=== PATIENT | male | born 1985 | race Caucasian/White ===

== ENCOUNTER 2017-12-01 12:25 | Observation (INO) ==
[2017-12-01] MEDS ORDERED: LORazepam 2 MG/1 ML VIAL ONE (12:30)
[2017-12-01] MEDS ORDERED: Sodium Chloride 0.9% 1,000 ML PRIMARY IV ONE (12:37)
[2017-12-01 12:43] LABS: BASOPHILS # (AUTO) 0.06 10*3/UL; BASOPHILS % (AUTO) 0.5 % (0-1); EOSINOPHILS # (AUTO) 0.22 10*3/UL; Hematocrit [HCT] 47.1 % (42.0-52.0); Hemoglobin [HGB] 15.7 g/dL (14.0-18.0); LYMPHOCYTES # (AUTO) 6.37 10*3/uL; MEAN CORPUSCULAR HGB CONC 33.3 g/dL (33-37); MEAN CORPUSCULAR VOLUME 86.9 FL (80-90); MEAN PLATELET VOLUME 10.2 FL (7.4-12.2); MONOCYTES # (AUTO) 0.81 10*3/UL (0.3-0.8); MONOCYTES % (AUTO) 7.3 % (5-15); NEUTROPHILS # (AUTO) 3.52 10*3/UL; NEUTROPHILS % (AUTO) 31.8 % (50-80); RED BLOOD COUNT 5.42 10^6/uL (4.70-6.10)
[2017-12-01 12:53] LABS: BLOOD UREA NITROGEN 12 mg/dL (7-22); SERUM ALBUMIN 5.6 g/dL (3.5-4.8)
[2017-12-01 12:56] LABS: PLATELET MORPHOLOGY COMMENT NORMAL MORPHOLOGY (NORM); RBC MORPHOLOGY COMMENT NORMAL MORPHOLOGY (NORM); WBC MORPHOLOGY COMMENT NORMAL MORPHOLOGY (NORM)
[2017-12-01] MEDS ORDERED: LORazepam 2 MG/1 ML VIAL IVP ONE (13:10)
[2017-12-01] MEDS ORDERED: DEXTROSE 50%-WATER SYRINGE 50 ML SYRINGE IVP ONE (13:11)
[2017-12-01 13:42] LABS: BILIRUBIN,URINE NEGATIVE (NEG); CLARITY,URINE CLEAR (CLEAR); COLOR,URINE YELLOW (Y); GLUCOSE, URINE (UA) 100 mg/dL (NEG); OCCULT BLOOD,URINE NEGATIVE (NEG); PH,URINE 5.5 (5.0-8.5); PROTEIN,URINE NEGATIVE (NEG); UROBILINOGEN,URINE 0.2 EU/dL (0.2)
--- NOTE | 2017-12-01 13:42 | DI ---
XR CXR 1VW 12/01/2017 12:37 PM HISTORY: altered mental status, brief CPR Comparison: None. Findings: A single portable frontal view of the chest is submitted. Images demonstrate normal aeration without focal consolidation. There is no large pneumothorax or ple ural effusion. The cardiomediastinal silhouette is within normal limits for technique. The osseous st ructures are grossly unremarkable. Impression: No radiographic evidence of acute cardiopulmonary disease.
[2017-12-01 13:43] LABS: URINE SAMPLE TYPE CLEAN CATCH URINE
--- NOTE | 2017-12-01 13:44 | DI ---
CT Head WO Contrast 12/01/2017 12:37 PM History: altered mental status Comparison: None. Procedure: Noncontrast axial, sagittal, and coronal CT images through the head were obtained. Findings: There is no intracranial hemorrhage or extra-axial fluid collection. The ventricles are nor mal in size and configuration. There is normal hugo-white differentiation without focal mass or mass- effect. The visualized portions of the paranasal sinuses are clear. Orbits and facial soft tissues a re unremarkable. Review of the osseous structures shows no depressed calvarial fracture or aggressiv e osseous lesion. The mastoid air cells are clear. Impression: No acute intracranial findings.
[2017-12-01 13:54] LABS: AMPHETAMINE SCREEN NEGATIVE (NEG); CANNABINOID SCREEN,URINE NEGATIVE (NEG); COCAINE SCREEN NEGATIVE (NEG); METHADONE URINE SCREEN NEGATIVE (NEG); METHAMPHETAMINES SCREEN,URINE NEGATIVE (NEG); OPIATE SCREEN,URINE NEGATIVE (NEG)
--- NOTE | 2017-12-01 15:46 | PDOC ---
HPI - History of Present Illness Date of Service: 12/01/17 Time of Service: 16:10 Chief Complaint: Passed out History of Present Illness: This is a 31 years old male with medical history significant for diabetes type I on insulin, he had it since age 15, hypertension, hypercholesterolemia and diabetic neuropathy who was brought to the hospital because he passed out at work. There is also based on the ER reports he had some seizure. Apparently the medics thought that he had no pulse and they started CPR but he woke up quickly and brought to the ER. His blood sugar was low less than 25 he was given dextrose . He Started to become more awake and was given foods and was admitted. He Was complaining from pain in his chest where they did the CPR and also pain in his legs. He said his blood sugar is fluctuating between highs and lows. He cannot afford newer kind of insulin he is on NPH 20 units twice a day. he Is also on Humalog. He said he would give himself Humalog every morning around 10 AM. But the rest depends on his intake and blood sugar number. Past Medical History Medical History: 1. Diabetes type I on insulin and metformin. 2. Hypertension. 3. Hypercholesterolemia. 4. Diabetic neuropathy Surgical History: Thrombosed hemorrhoid surgery Family History: Reviewed an Not Pertinent Past Social History: He works at [employer] from 6 AM to around 2 PM said. Twice a week he has another job after his day job. He doesn't smoke, no drugs. He drinks he said twice a week but his mother said he drinks more than that. Tobacco Use: Never Smoker In the Past 12 Months, Have Used or Abuse Any of the Following Substance: None Alcohol Use: Other (According to him he drinks wine maybe twice a week. However his mom told me after I left the room that he drinks heavily and nearly every day) Medication / Allergies Home Medications: Home Medications 3 Medication Instructions Recorded Confirmed Type acetaminophen 325 mg tablet 650 mg PO Q6H PRN 11/06/17 12/01/17 History gabapentin 600 mg tablet 600 mg PO BID 11/06/17 12/01/17 History insulin NPH isophane U-100 human 20 unit SUBCUT BID ml 11/06/17 12/01/17 History 100 unit/mL subcutaneous suspension insulin lispro (U-100) 100 unit/mL 12 unit SUBCUT QAC ml 11/06/17 12/01/17 History subcutaneous solution lisinopril 10 mg tablet 10 mg PO QDAY 11/06/17 12/01/17 History metformin 500 mg tablet 500 mg PO BID 11/06/17 12/01/17 History naproxen sodium 220 mg tablet 220 mg PO BID PRN 11/06/17 12/01/17 History simvastatin 40 mg tablet 40 mg PO QHS 11/06/17 12/01/17 History Allergies/Adverse Reactions: Allergies 3 Allergy/AdvReac Type Severity Reaction Status Date / Time tb serum Allergy Intermediate arm Uncoded 12/01/17 15:20 swelling Review of Systems - Review of Systems All Systems: Reviewed & No Additional Complaints Except as Stated Exam - Vitals Vital Signs: Vital Signs Pulse Rate 110 Respiratory Rate 18 Oxygen Delivery Method Room Air Height 5 ft 8 in Weight 185 lb 6 oz - General General Appearance: Cooperative Additional General Exam Details: Looks tired - Head Head Exam: Normal Inspection - Eye Eye Exam: POSITIVE: Normal Appearance - ENT ENT Exam: POSITIVE: Normal Exam - Neck Neck Exam: Normal Inspection - Respiratory Respiratory Exam: POSITIVE: Clear to Auscultation - Bilaterally - Cardiovascular Cardiovascular Exam: POSITIVE: Tachycardia - GI/Abdominal GI/Abdominal Exam: POSITIVE: Normal Bowel Sounds, Non Tender, Non Distended, Soft, No Organomegaly - Rectal Rectal Exam: POSITIVE: Deferred - External Exam: POSITIVE: Deferred - Extremities Extremities Exam: POSITIVE: Normal Inspection - Back Back Exam: POSITIVE: Normal Inspection - Neurological Neurological Exam: POSITIVE: Alert, Oriented x 3, Normal Gait, CN II-XII Intact , Speech Intact / Clear, Moves All Extremities Equally - Psychiatric Psychiatric Exam: POSITIVE: Normal Affect - Integumentary Integumentary Exam: POSITIVE: Normal Color Results - Labs CBC and BMP: 12/01/17 12:42 12/02/17 07:55 - Imaging Status: Report Reviewed by Me (CT head Impression: No acute intracranial findings. Chest X ray Impression: No radiographic evidence of acute cardiopulmonary disease.) Assessment and Plan - Patient Problems (1) Hypoglycemia Current Visit: Yes Status: Acute Comment: Based on what he said he has fluctuating blood sugar between high and low. I suspect his intake is playing part in it. His mother said after I left the room that he drinks a lot and skips meal. I did talk to the clinical trial educator to talk to him. Meanwhile I think will watch his blood sugar will put on some IV fluid. Will continue with NPH because this is what he can afford. Will write for sliding scale also. Will see whether we can give him samples of the newer Insulin on discharge Code(s): E16.2 - Hypoglycemia, unspecified (2) Diabetes Current Visit: No Status: Chronic Comment: Continue NPH and write for sliding scale. We'll put him on IV fluid. Code(s): E11.9 - Type 2 diabetes mellitus without complications Qualifiers: Diabetes mellitus type: type 1 Diabetes mellitus complication status: with neurologic complications Diabetes mellitus complication detail: with polyneuropathy Qualified Code(s): E10.42 - Type 1 diabetes mellitus with diabetic polyneuropathy (3) Hypertension Current Visit: Yes Status: Acute Comment: We'll see what his blood pressure tomorrow and then will decide about restarting lisinopril Code(s): I10 - Essential (primary) hypertension (4) High anion gap metabolic acidosis Current Visit: Yes Status: Acute Comment: Probably secondary to the seizure will put on some IV fluid Code(s): E87.2 - Acidosis (5) Diabetic neuropathy Current Visit: Yes Status: Acute Comment: Continue gabapentin Code(s): E11.40 - Type 2 diabetes mellitus with diabetic neuropathy, unspecified (6) Depression Current Visit: Yes Status: Acute Comment: His depression screening was up, will consult [facility]. I did talk to him again and he said he is under stress but he is denying suicidal ideation. I did talk to him about the fact that he signed a DO NOT RESUSCITATE paper to try to convince him to change his mind he refused. He said this is based on his pedro pablo. He said he refuses blood transfusion and any blood products. And he refuses resuscitation. He said his has a paper that he signed before in 2009 that indicate the same. At the time of my assessment he was competent of making such decisions. Code(s): F32.9 - Major depressive disorder, single episode, unspecified
[2017-12-01] MEDS ORDERED: LIDOCAINE W/ SODIUM BICARB 0.5 ML SYR SUBD PRN (15:51)
[2017-12-01] MEDS ORDERED: CALCIUM CARBONATE 500 MG (TUMS) CHEWABLE TABLET PO PRN (15:51)
[2017-12-01] MEDS ORDERED: ACETAMINOPHEN 325 MG TABLET PO PRN (15:51)
[2017-12-01] MEDS ORDERED: ONDANSETRON 4 MG/2 ML VIAL IVP PRN (15:51)
[2017-12-01] MEDS ORDERED: PNEUMOCOCCAL 23 VACCINE 25 MCG/0.5 ML VIAL IM ONE (15:53)
[2017-12-01] MEDS ORDERED: Influenza 18-19 Vaccine (6mo+) 60 MCG/0.5 ML SYRINGE IM ONE (15:53)
[2017-12-01] MEDS: Sodium Chloride 0.9% 1,000 ML PRIMARY IV SCH ×2 (16:36→22:37)
[2017-12-01] MEDS ORDERED: POTASSIUM CHLORIDE 20 MEQ TAB PO ONE (16:40)
[2017-12-01] MEDS: KETOROLAC 15 MG/1 ML VIAL IVP PRN (16:54)
[2017-12-01] MEDS: Insulin Lispro Flexpen 300 UNIT/3 ML INSULN.PEN SUBCUT SCH (18:02)
--- NOTE | 2017-12-01 18:09 | EKG ---
[address] [address] Measurements Intervals [place] Rate: 107 P: 69 [place]: 136 QRS: 83 QRSD: 86 T: -11 QT: 343 QTc: 406 Interpretive Statements SINUS TACHYCARDIA NONSPECIFIC T-WAVE ABNORMALITY Compared to ECG 10/30/2017 10:33:17 Sinus rhythm no longer present T-wave abnormality still present Electronically Signed On 12-02-17 08:26:27 MDT by Franco Oquendo MD [email or web address]
[2017-12-01] MEDS: HYDROcodone-APAP 5 MG -325 MG TABLET PO PRN (19:43)
[2017-12-01] MEDS: GABAPENTIN 300 MG CAPSULE PO SCH (20:27)
[2017-12-01 20:33] LABS: BLOOD UREA NITROGEN 15 mg/dL (7-22); BUN/CREATININE RATIO 18.75 (6-20)
[2017-12-01] MEDS ORDERED: Insulin NPH Kwikpen Inj 100 UNIT/ML INSULN.PEN SUBCUT ONE (22:29)
[2017-12-01] MEDS: Insulin NPH Kwikpen Inj 100 UNIT/ML INSULN.PEN SUBCUT SCH (22:31)
--- NOTE | 2017-12-01 23:24 | PDOC ---
General Adult HPI - General Chief Complaint: Altered Mental Status Stated Complaint: Unresponsive Date Seen by Provider: 12/01/17 Time Seen by Provider: 12:30 Source: POSITIVE: Patient, EMS Exam Limitations: POSITIVE: Clinical condition Nurse's Notes Reviewed & Considered: Yes EMS Report Reviewed & Considered: Verbal - History of Present Illness Initial Comment: The patient is a 31-year-old male who is brought to the emergency department by ambulance emergently after the patient was experiencing what appeared to be seizure activity and became unresponsive. The patient works at [employer]. Coworker stated that he became very confused and appeared to be having seizure- like activity. EMS was called. When EMS arrived on scene the patient appeared to be post ictal and somewhat confused. They were able to help him ambulate to the cot initially and he was placed in the back of the ambulance. Just as he got into the back of the ambulance the patient became very diaphoretic and unresponsive. He appeared cyanotic and did not appear to be breathing. When EMS personnel checked for a pulse they did not feel a pulse and CPR was started. After a brief episode of chest compressions the patient started moaning and appeared to be breathing on his own so CPR was discontinued. He was connected to the monitor and EMS personnel initially thought the patient might be in atrial flutter however on review of the rhythm strips it appears to be more sinus tachycardia with a rate of around 140 with artifact. The patient was subsequently transported emergently here to the emergency department. On arrival the patient will open his eyes however will not answer questions or follow commands. Have you received a tetanus shot in the past 10 years?: Unknown - Patient Home Medications Home Medications: Home Medications acetaminophen 325 mg tablet 650 mg PO Q6H PRN 11/06/17 gabapentin 600 mg tablet 600 mg PO BID 11/06/17 insulin NPH isophane U-100 human 100 unit/mL subcutaneous suspension 20 unit SUBCUT BID ml 11/06/17 insulin lispro (U-100) 100 unit/mL subcutaneous solution 12 unit SUBCUT QAC ml 11/06/17 lisinopril 10 mg tablet 10 mg PO QDAY 11/06/17 metformin 500 mg tablet 500 mg PO BID 11/06/17 naproxen sodium 220 mg tablet 220 mg PO BID PRN 11/06/17 simvastatin 40 mg tablet 40 mg PO QHS 11/06/17 - Patient Allergies Allergies/Adverse Reactions: Allergies 3 Allergy/AdvReac Type Severity Reaction Status Date / Time tb serum Allergy Intermediate arm Uncoded 12/01/17 15:20 swelling Past Medical History - heen HEENT History: Denies History Cardiovascular History: Hypertension, Hyperlipidemia Respiratory History: Denies History Gastrointestinal History: Denies History Genitourinary History: Denies History Endocrine History: Type 1 Diabetes Musculoskeletal History: Denies History Prosthesis or Implant: No Neurological History: Denies History Blood Disorders: Denies History Psychiatric History: Denies History History of Sexually Transmitted Diseases: No Cancer History: Denies History In Past Year Been Physically Harmed or Verbally Threatened: No History of MDRO: No History of Other Communicable Diseases: No Tobacco Use: Never Smoker Type of alcohol normally used: Beer, Wine In the Past 12 Months, Have Used or Abuse Any Substance: None Previous Surgical History: No Significant Family History: Cancer Past Medical History Reviewed: Reviewed - No Changes ROS - Limitations ROS Limitations: Clinical Condition General Adult Exam - General Appearance General Appearance: POSITIVE: Other (On arrival the patient would open his eyes however he would not verbally respond or follow commands) - HEENT HEENT: POSITIVE: Head Inspection Nml (No visible signs of trauma), Eyes Inspection Nml, Ears Inspection Nml, Nose Inspection Nml, Oral/Dental Inspect. Nml, Pharynx Inspect. Nml, PERRL, EOMI - Neck Neck: POSITIVE: Normal Inspection. NEGATIVE: Lymphadenopathy - Respiratory Respiratory: POSITIVE: No Respiratory Distress, Other (The patient is breathing on his own, he does have some coarse rhonchi, his oxygen saturations were in the upper 80s and he was placed on O2 per high flow mask) - Cardiovascular Cardiovascular: POSITIVE: Regular Rate & Rhythm, No Murmur Peripheral Pulses: Dorsalis-pedis (R): 2+, Dorsalis-pedis (L): 2+ - Abdomen Abdomen: Soft: (All Quadrants), Denies Tenderness: (All Quadrants), No Distention: (All Quadrants) - Back Back: POSITIVE: Normal Inspection - Skin Skin: POSITIVE: Normal Color, No Rash - Extremities Extremity: Normal ROM: (All Extremities), Normal Inspection: (All Extremities) General Adult Progress - Results Reviewed by me Xrays/CTs/US Reviewed by me: Yes Discussed with Radiologist: Yes Radiology Findings: CT scan of the head reveals no acute intracranial findings per radiologist, chest x-ray is unremarkable per radiologist. Lab Results Reviewed by Me: Yes Lab Results:: Laboratory Results 3 12/01/17 12/01/17 12/01/17 12:42 12:42 12:42 WBC 11.08 H RBC 5.42 Hgb 15.7 Hct 47.1 MCV 86.9 MCH 29.0 MCHC 33.3 RDW Std Deviation 44.2 RDW Coeff of [place]ako 13.8 Plt Count 261 MPV 10.2 Immature Gran % (Auto) 0.9 Neut % (Auto) 31.8 L Lymph % (Auto) 57.5 H [place] % (Auto) 7.3 Eos % (Auto) 2.0 Baso % (Auto) 0.5 Immature Gran # (Auto) 0.10 Neut # (Auto) 3.52 Lymph # (Auto) 6.37 [place] # (Auto) 0.81 H Eos # (Auto) 0.22 Baso # (Auto) 0.06 WBC Morphology Comment Normal morphology Plt Morphology Comment Normal morphology RBC Morph Comment Normal morphology Sodium 149 H Potassium 3.4 L Chloride 111 Carbon Dioxide 12 L Anion Gap 26 H BUN 12 Creatinine 1.2 Estimated GFR > 60 BUN/Creatinine Ratio 10.00 Glucose 46 L* Calculated Osmolality 304.0 H Calcium 9.8 Magnesium 2.1 Total Bilirubin 0.3 AST 74 H ALT 47 Alkaline Phosphatase 68 Troponin I < 0.012 C-Reactive Protein < 0.5 NT-Pro-B Natriuret Pep 76.9 Total Protein 8.7 H Albumin 5.6 H Globulin 3.1 Albumin/Globulin Ratio 1.80 TSH Ur Collection Type Urine Color Urine Clarity Urine pH Ur Specific [place] U Specif Grav (Refrac) Urine Protein Urine Glucose (UA) Urine Ketones Urine Occult Blood Urine Nitrate Urine Bilirubin Urine Urobilinogen Ur Leukocyte Esterase Ur Culture Indicated? Urine Opiates Screen Ur Buprenorphine Ur Oxycodone Screen Urine Methadone Screen Ur Propoxyphene Screen Barbiturate Screen U Tricyclic Antidepress Phencyclidine Screen Amphetamines Screen U Methamphetamines Scrn Benzodiazepines Screen Cocaine Screen U Marijuana (THC) Screen Serum Alcohol < 10 3 12/01/17 12/01/17 12:42 13:37 WBC RBC Hgb Hct MCV MCH MCHC RDW Std Deviation RDW Coeff of [place] Plt Count MPV Immature Gran % (Auto) Neut % (Auto) Lymph % (Auto) [place] % (Auto) Eos % (Auto) Baso % (Auto) Immature Gran # (Auto) Neut # (Auto) Lymph # (Auto) [place] # (Auto) Eos # (Auto) Baso # (Auto) WBC Morphology Comment Plt Morphology Comment RBC Morph Comment Sodium Potassium Chloride Carbon Dioxide Anion Gap BUN Creatinine Estimated GFR BUN/Creatinine Ratio Glucose Calculated Osmolality Calcium Magnesium Total Bilirubin AST ALT Alkaline Phosphatase Troponin I C-Reactive Protein NT-Pro-B Natriuret Pep Total Protein Albumin Globulin Albumin/Globulin Ratio TSH 1.90 Ur Collection Type Clean catch urine Urine Color Yellow Urine Clarity Clear Urine pH 5.5 Ur Specific [place] 1.020 U Specif Grav (Refrac) 1.020 Urine Protein Negative Urine Glucose (UA) 100 Urine Ketones Negative Urine Occult Blood Negative Urine Nitrate Negative Urine Bilirubin Negative Urine Urobilinogen 0.2 Ur Leukocyte Esterase Negative Ur Culture Indicated? Culture not set Urine Opiates Screen Negative Ur Buprenorphine Negative Ur Oxycodone Screen Negative Urine Methadone Screen Negative Ur Propoxyphene Screen Negative Barbiturate Screen Negative U Tricyclic Antidepress Negative Phencyclidine Screen Negative Amphetamines Screen Negative U Methamphetamines Scrn Negative Benzodiazepines Screen Negative Cocaine Screen Negative U Marijuana (THC) Screen Negative Serum Alcohol CBC and BMP: 12/01/17 12:42 12/01/17 20:21 EKG Interpreted/Reviewed By Me:: Yes EKG Interpretation:: POSITIVE: Normal Sinus Rhythm, Normal Rate, Normal QRS, Normal ST/T, Other (EKG was done after the patient had been admitted) - Patient's Progress MDM / ED Course: On arrival the patient was minimally responsive and would only open his eyes. He would not respond verbally and would not follow commands. His oxygen saturations were in the upper 80s on room air and he was placed on O2 per high flow mask. IV was established. Blood sugar was checked and was found to be less than 25. He subsequently received 1 amp of D50. His mental status improved significantly and his blood sugar initially came up into the 120s. His blood sugar then started drifting down into the upper 40s and he was able to eat oral glucose tablets, juice and some food. His blood sugar came back up into the 80s. After administration of glucose the patient was complaining primarily of some soreness in his chest and a little bit in his jaw. He was answering questions appropriately and had no focal neurologic deficits. The patient does have a history of diabetes and does use insulin. His blood sugars have been erratic. He does not have any known history of seizure disorder. CT scan of his head was unremarkable and chest x-ray was normal. Other than the low blood sugar his blood work is essentially unremarkable as well. It appears that his clinical presentation is all consistent with hypoglycemic episode. He did receive a brief round of CPR however I think his unresponsive episode was most likely secondary to hypoglycemia and seizure rather than cardiac arrest. The patient was discussed with Dr. [place] and will be admitted for further monitoring - Consult Counseled: POSITIVE: Patient, Family, RE: Lab Results, RE: Radiology Results, RE : DX Patient Care Time - Estimated PCT Patient Care Time (In Minutes): 45 Vital Signs - Recent Vital Signs Vital Signs: Vital Signs (Last 8 hours) Temp Pulse Pulse Resp BP Pulse Ox 12/02/17 04:31 97.7 F 90 16 141/86 96 12/02/17 03:00 79 12/02/17 00:23 98.3 F 104 H 16 136/83 96 12/01/17 23:00 86 - VS Reviewed Vital Signs Reviewed: Yes Discharge Clinical Impression: Hypoglycemia, Chest wall contusion Discharge Disposition: Admit to Observation Condition: Fair
[2017-12-02] MEDS: HYDROcodone-APAP 5 MG -325 MG TABLET PO PRN (05:13)
[2017-12-02] MEDS: KETOROLAC 15 MG/1 ML VIAL IVP PRN ×2 (05:13→13:08)
[2017-12-02] MEDS: Sodium Chloride 0.9% 1,000 ML PRIMARY IV SCH (05:31)
[2017-12-02] MEDS: Insulin Lispro Flexpen 300 UNIT/3 ML INSULN.PEN SUBCUT SCH ×2 (06:41→11:53)
[2017-12-02] MEDS: GABAPENTIN 300 MG CAPSULE PO SCH ×2 (07:53→08:36)
[2017-12-02] MEDS: Insulin NPH Kwikpen Inj 100 UNIT/ML INSULN.PEN SUBCUT SCH ×2 (07:53→08:36)
[2017-12-02 08:28] LABS: BLOOD UREA NITROGEN 12 mg/dL (7-22); BUN/CREATININE RATIO 17.14 (6-20)
[2017-12-02 09:52] VITALS: BP 140/90; RESP 20; TEMP 98; O2SAT 97
--- NOTE | 2017-12-02 11:12 | DCSUMMARY ---
Hospitalization Summary Admit Date: 12/01/2016 Discharge Date: 12/02/17 Hospital Course: Discharge diagnoses 1. Seizure secondary to hypoglycemia 2. Hypoglycemia 3. Type I diabetes 4. History of hypertension 5. History of diabetic neuropathy 6. Increased anion gap metabolic acidosis resolved Hospital course This is a 31 years old male with medical history significant for diabetes type I on insulin, he had it since age 15, hypertension, hypercholesterolemia and diabetic neuropathy who was brought to the hospital because he passed out at work. There is also based on the ER reports he had some seizure. Apparently the medics thought that he had no pulse and they started CPR but he woke up quickly and brought to the ER. His blood sugar was low less than 25 he was given dextrose . He Started to become more awake and was given foods and was admitted. He Was complaining from pain in his chest where they did the CPR and also pain in his legs. He said his blood sugar is fluctuating between highs and lows. He cannot afford newer kind of insulin he is on NPH 20 units twice a day. he Is also on sliding scale Humalog. He said he would give himself Humalog every morning around 10 AM. But the rest depends on his intake and blood sugar number. Patient was admitted to the hospital was put on IV fluid. We continued with his NPH and sliding scale. However we gave him a lower dosage of NPH than what he was taking before. The next day he was feeling better he had some soreness in his chest but otherwise no significant symptoms. His increased and gap acidosis was resolved. He was seen both by [facility] and the dietitian. [facility] for did not think that the he is suicidal and he can follow up with them if he wishes. The medical educator was able to give him Tresiba samples will last more than a month. So will replace NPH with tresiba we discharged him at 30 units instead of total of 40 units a day that he was giving himself. Hopefully that would lower the chance of severe hypoglycemia. He will follow-up on Thursday with both Dr. Colmenares and with the medical educator. His physical exam was unremarkable day of discharge. He denied suicidal ideation. Laboratory Results 12/01/17 12/01/17 12/01/17 Range/Units 12:42 12:42 12:42 WBC 11.08 H (4.8-10.8) 10^3/uL RBC 5.42 (4.70-6.10) 10^6/uL Hgb 15.7 (14.0-18.0) g/dL Hct 47.1 (42.0-52.0) % MCV 86.9 (80-90) FL MCH 29.0 (27-31) PG MCHC 33.3 (33-37) g/dL RDW Std Deviation 44.2 (39-50) fL RDW Coeff of Flako 13.8 (11.5-14.5) % Plt Count 261 (140-350) 10*3/uL MPV 10.2 (7.4-12.2) FL Immature Gran % (Auto) 0.9 (0-5) % Neut % (Auto) 31.8 L (50-80) % Lymph % (Auto) 57.5 H (10-50) % [place] % (Auto) 7.3 (5-15) % Eos % (Auto) 2.0 (0-8) % Baso % (Auto) 0.5 (0-1) % Immature Gran # (Auto) 0.10 10*3/UL Neut # (Auto) 3.52 10*3/UL Lymph # (Auto) 6.37 10*3/uL Irion # (Auto) 0.81 H (0.3-0.8) 10*3/UL Eos # (Auto) 0.22 10*3/UL Baso # (Auto) 0.06 10*3/UL WBC Morphology Comment Normal morphology (NORM) Plt Morphology Comment Normal morphology (NORM) RBC Morph Comment Normal morphology (NORM) Sodium 149 H (135-145) meq/L Potassium 3.4 L (3.8-5.2) meq/L Chloride 111 (98-112) meq/L Carbon Dioxide 12 L (23-33) meq/L Anion Gap 26 H (5-20) BUN 12 (7-22) mg/dL Creatinine 1.2 (0.70-1.50) mg/dL Estimated GFR > 60 (>60 ml/min/1.73m(2)) BUN/Creatinine Ratio 10.00 (6-20) Glucose 46 L* (78-110) mg/dL Mean Blood Glucose mg/dL Hemoglobin A1c (4.2-6.0) % Calculated Osmolality 304.0 H (267-292) mOsm/kg Calcium 9.8 (8.7-10.7) mg/dL Magnesium 2.1 (1.6-2.4) mg/dL Total Bilirubin 0.3 (0.3-1.2) mg/dL AST 74 H (21-57) IU/L ALT 47 (21-72) IU/L Alkaline Phosphatase 68 (38-126) IU/L Troponin I < 0.012 (< 0.040) ng/mL C-Reactive Protein < 0.5 (0.0-0.9) mg/dL NT-Pro-B Natriuret Pep 76.9 (0-125) PG/ML Total Protein 8.7 H (6.1-8.0) g/dL Albumin 5.6 H (3.5-4.8) g/dL Globulin 3.1 (2.50-4.10) g/dL Albumin/Globulin Ratio 1.80 (1.3-2.0) mg/g TSH (0.2700-4.2000) uIU/mL Ur Collection Type Urine Color (Y) Urine Clarity (CLEAR) Urine pH (5.0-8.5) Ur Specific [place] (1.005-1.030) U Specif Grav (Refrac) Urine Protein (NEG) mg/dl Urine Glucose (UA) (NEG) mg/dL Urine Ketones (NEG) Urine Occult Blood (NEG) Urine Nitrate (NEG) Urine Bilirubin (NEG) Urine Urobilinogen (0.2) EU/dL Ur Leukocyte Esterase (NEG) Ur Culture Indicated? Urine Opiates Screen (NEG) Ur Buprenorphine (NEG) Ur Oxycodone Screen (NEG) Urine Methadone Screen (NEG) Ur Propoxyphene Screen (NEG) Barbiturate Screen (NEG) U Tricyclic Antidepress (NEG) Phencyclidine Screen (NEG) Amphetamines Screen (NEG) U Methamphetamines Scrn (NEG) Benzodiazepines Screen (NEG) Cocaine Screen (NEG) U Marijuana (THC) Screen (NEG) Serum Alcohol < 10 (0-10) mg/dL 12/01/17 12/01/17 12/01/17 Range/Units 12:42 13:37 20:21 WBC (4.8-10.8) 10^3/uL RBC (4.70-6.10) 10^6/uL Hgb (14.0-18.0) g/dL Hct (42.0-52.0) % MCV (80-90) FL MCH (27-31) PG MCHC (33-37) g/dL RDW Std Deviation (39-50) fL RDW Coeff of Flako (11.5-14.5) % Plt Count (140-350) 10*3/uL MPV (7.4-12.2) FL Immature Gran % (Auto) (0-5) % Neut % (Auto) (50-80) % Lymph % (Auto) (10-50) % [place] % (Auto) (5-15) % Eos % (Auto) (0-8) % Baso % (Auto) (0-1) % Immature Gran # (Auto) 10*3/UL Neut # (Auto) 10*3/UL Lymph # (Auto) 10*3/uL [place] # (Auto) (0.3-0.8) 10*3/UL Eos # (Auto) 10*3/UL Baso # (Auto) 10*3/UL WBC Morphology Comment (NORM) Plt Morphology Comment (NORM) RBC Morph Comment (NORM) Sodium 138 (135-145) meq/L Potassium 3.9 (3.8-5.2) meq/L Chloride 109 (98-112) meq/L Carbon Dioxide 22 L (23-33) meq/L Anion Gap 7 (5-20) BUN 15 (7-22) mg/dL Creatinine 0.8 (0.70-1.50) mg/dL Estimated GFR > 60 (>60 ml/min/1.73m(2)) BUN/Creatinine Ratio 18.75 (6-20) Glucose 149 H (78-110) mg/dL Mean Blood Glucose mg/dL Hemoglobin A1c (4.2-6.0) % Calculated Osmolality 289.0 (267-292) mOsm/kg Calcium 8.7 (8.7-10.7) mg/dL Magnesium (1.6-2.4) mg/dL Total Bilirubin (0.3-1.2) mg/dL AST (21-57) IU/L ALT (21-72) IU/L Alkaline Phosphatase (38-126) IU/L Troponin I (< 0.040) ng/mL C-Reactive Protein (0.0-0.9) mg/dL NT-Pro-B Natriuret Pep (0-125) PG/ML Total Protein (6.1-8.0) g/dL Albumin (3.5-4.8) g/dL Globulin (2.50-4.10) g/dL Albumin/Globulin Ratio (1.3-2.0) mg/g TSH 1.90 (0.2700-4.2000) uIU/mL Ur Collection Type Clean catch urine Urine Color Yellow (Y) Urine Clarity Clear (CLEAR) Urine pH 5.5 (5.0-8.5) Ur Specific [place] 1.020 (1.005-1.030) U Specif Grav (Refrac) 1.020 Urine Protein Negative (NEG) mg/dl Urine Glucose (UA) 100 (NEG) mg/dL Urine Ketones Negative (NEG) Urine Occult Blood Negative (NEG) Urine Nitrate Negative (NEG) Urine Bilirubin Negative (NEG) Urine Urobilinogen 0.2 (0.2) EU/dL Ur Leukocyte Esterase Negative (NEG) Ur Culture Indicated? Culture not set Urine Opiates Screen Negative (NEG) Ur Buprenorphine Negative (NEG) Ur Oxycodone Screen Negative (NEG) Urine Methadone Screen Negative (NEG) Ur Propoxyphene Screen Negative (NEG) Barbiturate Screen Negative (NEG) U Tricyclic Antidepress Negative (NEG) Phencyclidine Screen Negative (NEG) Amphetamines Screen Negative (NEG) U Methamphetamines Scrn Negative (NEG) Benzodiazepines Screen Negative (NEG) Cocaine Screen Negative (NEG) U Marijuana (THC) Screen Negative (NEG) Serum Alcohol (0-10) mg/dL 12/01/17 12/02/17 12/02/17 Range/Units 20:21 07:55 07:55 WBC (4.8-10.8) 10^3/uL RBC (4.70-6.10) 10^6/uL Hgb (14.0-18.0) g/dL Hct (42.0-52.0) % MCV (80-90) FL MCH (27-31) PG MCHC (33-37) g/dL RDW Std Deviation (39-50) fL RDW Coeff of Flako (11.5-14.5) % Plt Count (140-350) 10*3/uL MPV (7.4-12.2) FL Immature Gran % (Auto) (0-5) % Neut % (Auto) (50-80) % Lymph % (Auto) (10-50) % [place] % (Auto) (5-15) % Eos % (Auto) (0-8) % Baso % (Auto) (0-1) % Immature Gran # (Auto) 10*3/UL Neut # (Auto) 10*3/UL Lymph # (Auto) 10*3/uL [place] # (Auto) (0.3-0.8) 10*3/UL Eos # (Auto) 10*3/UL Baso # (Auto) 10*3/UL WBC Morphology Comment (NORM) Plt Morphology Comment (NORM) RBC Morph Comment (NORM) Sodium 137 (135-145) meq/L Potassium 4.2 (3.8-5.2) meq/L Chloride 109 (98-112) meq/L Carbon Dioxide 22 L (23-33) meq/L Anion Gap 6 (5-20) BUN 12 (7-22) mg/dL Creatinine 0.7 (0.70-1.50) mg/dL Estimated GFR > 60 (>60 ml/min/1.73m(2)) BUN/Creatinine Ratio 17.14 (6-20) Glucose 198 H (78-110) mg/dL Mean Blood Glucose 187.060 mg/dL Hemoglobin A1c 8.20 H (4.2-6.0) % Calculated Osmolality 289.0 (267-292) mOsm/kg Calcium 8.4 L (8.7-10.7) mg/dL Magnesium (1.6-2.4) mg/dL Total Bilirubin (0.3-1.2) mg/dL AST (21-57) IU/L ALT (21-72) IU/L Alkaline Phosphatase (38-126) IU/L Troponin I < 0.012 (< 0.040) ng/mL C-Reactive Protein (0.0-0.9) mg/dL NT-Pro-B Natriuret Pep (0-125) PG/ML Total Protein (6.1-8.0) g/dL Albumin (3.5-4.8) g/dL Globulin (2.50-4.10) g/dL Albumin/Globulin Ratio (1.3-2.0) mg/g TSH (0.2700-4.2000) uIU/mL Ur Collection Type Urine Color (Y) Urine Clarity (CLEAR) Urine pH (5.0-8.5) Ur Specific [place] (1.005-1.030) U Specif Grav (Refrac) Urine Protein (NEG) mg/dl Urine Glucose (UA) (NEG) mg/dL Urine Ketones (NEG) Urine Occult Blood (NEG) Urine Nitrate (NEG) Urine Bilirubin (NEG) Urine Urobilinogen (0.2) EU/dL Ur Leukocyte Esterase (NEG) Ur Culture Indicated? Urine Opiates Screen (NEG) Ur Buprenorphine (NEG) Ur Oxycodone Screen (NEG) Urine Methadone Screen (NEG) Ur Propoxyphene Screen (NEG) Barbiturate Screen (NEG) U Tricyclic Antidepress (NEG) Phencyclidine Screen (NEG) Amphetamines Screen (NEG) U Methamphetamines Scrn (NEG) Benzodiazepines Screen (NEG) Cocaine Screen (NEG) U Marijuana (THC) Screen (NEG) Serum Alcohol (0-10) mg/dL Discharge instruction Diet diabetic Activity as tolerated Medications Current Medication(s) 3 Medication Instructions Recorded Confirmed Type acetaminophen 325 mg tablet 650 mg PO Q6H PRN 11/06/17 12/01/17 History gabapentin 600 mg tablet 600 mg PO BID 11/06/17 12/01/17 History insulin lispro (U-100) 100 unit/mL 12 unit SUBCUT QAC ml 11/06/17 12/01/17 History subcutaneous solution lisinopril 10 mg tablet 10 mg PO QDAY 11/06/17 12/01/17 History metformin 500 mg tablet 500 mg PO BID 11/06/17 12/01/17 History naproxen sodium 220 mg tablet 220 mg PO BID PRN 11/06/17 12/01/17 History simvastatin 40 mg tablet 40 mg PO QHS 11/06/17 12/01/17 History Insulin Degludec [Tresiba 30 unit SQ BEDTIME #1 [email or web address] 12/02/17 Rx Flextouch U-200] Follow-up as scheduled on Thursday with Dr. Colmenares and the medical educator. Condition at discharge was stable for discharge Exam - Vitals Vital Signs: Vital Signs Temperature 98.0 F Temperature Source Temporal Artery Scan Pulse Rate [Pulse Oximeter] 94 Pulse Rate 89 Respiratory Rate 20 Blood Pressure [Left Arm] 140/90 Blood Pressure 117/70 Pulse Ox 97 Oxygen Delivery Method Room Air Height 5 ft 8 in Weight 185 lb 9.6 oz - General General Appearance: No Acute Distress, Cooperative - Head Head Exam: Normal Inspection - Eye Eye Exam: POSITIVE: Normal Appearance - ENT ENT Exam: POSITIVE: Normal Exam - Neck Neck Exam: Normal Inspection - Respiratory Respiratory Exam: POSITIVE: Clear to Auscultation - Bilaterally - Cardiovascular Cardiovascular Exam: POSITIVE: RRR - GI/Abdominal GI/Abdominal Exam: POSITIVE: Normal Bowel Sounds, Non Tender, Non Distended, No Organomegaly - Rectal Rectal Exam: POSITIVE: Deferred - External Exam: POSITIVE: Deferred - Extremities Extremities Exam: POSITIVE: Normal Inspection - Back Back Exam: POSITIVE: Normal Inspection - Neurological Neurological Exam: POSITIVE: Alert, Oriented x 3, CN II-XII Intact, No Facial Droop, Speech Intact / Clear, Moves All Extremities Equally - Psychiatric Psychiatric Exam: POSITIVE: Normal Affect Patient Problems - Patient Problem List (1) Hypoglycemia Status: Acute Code(s): E16.2 - Hypoglycemia, unspecified Category: Medical (2) Diabetes Status: Chronic Code(s): E11.9 - Type 2 diabetes mellitus without complications Qualifiers: Diabetes mellitus type: type 1 Diabetes mellitus complication status: with neurologic complications Diabetes mellitus complication detail: with polyneuropathy Qualified Code(s): E10.42 - Type 1 diabetes mellitus with diabetic polyneuropathy Category: Medical (3) Hypertension Status: Acute Code(s): I10 - Essential (primary) hypertension Category: Medical (4) High anion gap metabolic acidosis Status: Acute Code(s): E87.2 - Acidosis Category: Medical (5) Diabetic neuropathy Status: Acute Code(s): E11.40 - Type 2 diabetes mellitus with diabetic neuropathy, unspecified Category: Medical (6) Depression Status: Acute Code(s): F32.9 - Major depressive disorder, single episode, unspecified Category: Medical
[2017-12-02] MEDS ORDERED: HYDROcodone-APAP 5 MG -325 MG TABLET PO PRN (12:15)
[2017-12-02] MEDS ORDERED: Influenza 18-19 Vaccine (6mo+) 60 MCG/0.5 ML SYRINGE IM ONE (12:48)
[2017-12-02] MEDS ORDERED: PNEUMOCOCCAL 23 VACCINE 25 MCG/0.5 ML VIAL ONE (12:48)
== END 2017-12-02 13:22 | disposition home or self-care (01) ==
LOC: ER 12:25 → MED/SURG 12:25
PROVIDERS: ADMIT Internal Medicine; ATTEND Internal Medicine